=== PATIENT | female | born 1980 | race American Indian/Alaskan Native ===

== ENCOUNTER 2018-02-01 19:05 | Inpatient (IN) | payer OTHER ==
[2018-02-01 20:55] LABS: Basophils # (Auto) 0.1 K/mm3 (0.0-0.1); Basophils % (Auto) 0.8 % (0.0-1.8); Eosinophils # (Auto) 0.2 K/mm3 (0.0-0.4); Eosinophils % (Auto) 2.1 % (0.0-4.3); Hematocrit 38.9 % (30.3-42.9); Hemoglobin 12.6 gm/dl (10.1-14.3); Lymphocytes # (Auto) 3.2 K/mm3 (1.2-5.4); Lymphocytes % (Auto) 30.8 % (13.4-35.0); Mean Corpuscular HGB Conc 32 % (30-34); Mean Corpuscular Hemoglobin 31 pg (28-32); Mean Corpuscular Volume 95 fl (79-97); Monocytes # (Auto) 0.8 K/mm3 (0.0-0.8); Monocytes % (Auto) 7.6 % (0.0-7.3); Platelet Count 327 K/mm3 (140-440); Red Blood Count 4.11 M/mm3 (3.65-5.03); Red Cell Distribution Width 15.4 % (13.2-15.2)
[2018-02-01 21:04] LABS: BUN/Creatinine Ratio 18; Blood Urea Nitrogen 9 mg/dL (7-17); Calcium 8.9 mg/dL (8.4-10.2); Hemolysis Index 30
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
--- NOTE | 2018-02-02 00:16 | Cat Scan Report ---
FINAL REPORT EXAM: CT HEAD/BRAIN WO CON HISTORY: tia COMPARISON: None available. TECHNIQUE: Axial images obtained skull base through vertex. FINDINGS: No acute intracranial hemorrhage, midline shift or pathologic extra axial fluid collection. Ventricles and cisterns are normal in size and configuration for the patient's age. Reynolds-white differentiation preserved. Calvarium grossly intact. Ocular globes are grossly unremarkable. Prominent retention cyst or polyp within the right sphenoid sinus and mild mucosal thickening ethmoid air cells. Mastoid air cells are clear. IMPRESSION: No grossly acute intracranial abnormality.
[2018-02-02 00:44] LABS: INR 0.87 (0.87-1.13); Partial Thromboplastin Time 28.5 Sec. (24.2-36.6)
[2018-02-02] MEDS ORDERED: BABY ASPIRIN PO ONE (01:09)
[2018-02-02] MEDS ORDERED: ZOFRAN IV PRN (03:25)
[2018-02-02] MEDS ORDERED: SODIUM CHLORIDE FLUSH SYRINGE 10 ML IV PRN (03:25)
[2018-02-02] MEDS ORDERED: NACL 0.9% 1000 ML 1,000 ML IV SCH (04:00)
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
[2018-02-02 04:48] LABS: Creatine Kinase MB < 1.0 ng/mL (0.0-4.0)
[2018-02-02 09:23] LABS: Creatine Kinase MB < 1.0 ng/mL (0.0-4.0)
--- NOTE | 2018-02-02 09:45 | Event Note ---
Date: 02/02/18 Patient seen and examined. Admitted for TIA, syncope and hypertension. CT of the brain was unremarkable. Cardiac enzymes were normal. Echo pending. Obtain MRI of the brain and carotid Doppler. Neuro check every 4hr.
--- NOTE | 2018-02-02 11:17 | Progress Note ---
Subjective Date of service: 02/02/18 Interval history: CONSULT DICTATED Objective Vital Signs Temp Pulse Pulse Pulse Pulse Resp Resp 02/02/18 08:42 98.6 F 68 16 02/02/18 06:51 17 02/02/18 05:40 74 14 02/02/18 05:30 67 14 02/02/18 05:20 68 13 02/02/18 05:10 61 12 02/02/18 05:00 84 16 02/02/18 04:50 82 16 02/02/18 04:40 77 15 02/02/18 04:30 71 14 02/02/18 04:20 70 12 02/02/18 04:10 66 12 02/02/18 04:00 63 11 L 02/02/18 03:50 63 18 02/02/18 03:40 74 12 02/02/18 03:36 59 L 73 78 02/02/18 03:30 69 16 02/02/18 03:20 69 17 02/02/18 03:10 70 14 02/02/18 03:00 70 16 02/02/18 02:00 61 14 02/02/18 01:00 64 15 02/02/18 00:30 65 17 02/01/18 22:50 98 F 68 16 02/01/18 20:21 98.3 F 77 16 BP BP BP BP BP Pulse Ox 02/02/18 08:42 142/75 99 02/02/18 06:51 02/02/18 05:40 151/55 98 02/02/18 05:30 151/55 100 02/02/18 05:20 151/55 98 02/02/18 05:10 163/75 98 02/02/18 05:00 163/75 98 02/02/18 04:50 151/55 93 02/02/18 04:40 151/55 97 02/02/18 04:30 151/55 98 02/02/18 04:20 151/55 98 02/02/18 04:10 151/55 98 02/02/18 04:00 151/55 99 02/02/18 03:50 145/72 100 02/02/18 03:40 148/72 99 02/02/18 03:36 137/81 152/86 148/72 02/02/18 03:30 145/72 99 02/02/18 03:20 145/72 99 02/02/18 03:10 145/72 99 02/02/18 03:00 145/72 100 02/02/18 02:00 133/64 100 02/02/18 01:00 139/74 100 02/02/18 00:30 139/74 100 02/01/18 22:50 146/81 99 02/01/18 20:21 149/82 97 - Labs and Meds Cardiac Enzymes 02/02/18 02/02/18 Range/Units 03:45 08:18 CK-MB (CK-2) < 1.0 < 1.0 (0.0-4.0) ng/mL Coagulation 02/01/18 Range/Units 23:46 PT 12.3 (12.2-14.9) Sec. INR 0.87 (0.87-1.13) APTT 28.5 (24.2-36.6) Sec. CBC 02/01/18 Range/Units 20:39 WBC 10.5 (4.5-11.0) K/mm3 RBC 4.11 (3.65-5.03) M/mm3 Hgb 12.6 (10.1-14.3) gm/dl Hct 38.9 (30.3-42.9) % Plt Count 327 (140-440) K/mm3 Lymph # 3.2 (1.2-5.4) K/mm3 [place] # 0.8 (0.0-0.8) K/mm3 Eos # 0.2 (0.0-0.4) K/mm3 Baso # 0.1 (0.0-0.1) K/mm3 Comprehensive Metabolic Panel 02/01/18 Range/Units 20:39 Sodium 137 (137-145) mmol/L Potassium 4.1 (3.6-5.0) mmol/L Chloride 100.7 (98-107) mmol/L Carbon Dioxide 22 (22-30) mmol/L BUN 9 (7-17) mg/dL Creatinine 0.5 L (0.7-1.2) mg/dL Glucose 87 (65-100) mg/dL Calcium 8.9 (8.4-10.2) mg/dL - Imaging and Cardiology EKG: image reviewed
[2018-02-02] MEDS: SODIUM CHLORIDE FLUSH SYRINGE 10 ML IV SCH ×2 (11:32→22:44)
[2018-02-02] MEDS: LOVENOX SUB-Q SCH (11:33)
[2018-02-02] MEDS: TYLENOL PO PRN ×2 (11:45→18:20)
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
[2018-02-03 05:56] LABS: Basophils # (Auto) 0.1 K/mm3 (0.0-0.1); Basophils % (Auto) 0.8 % (0.0-1.8); Eosinophils # (Auto) 0.2 K/mm3 (0.0-0.4); Eosinophils % (Auto) 2.3 % (0.0-4.3); Hematocrit 38.6 % (30.3-42.9); Hemoglobin 12.8 gm/dl (10.1-14.3); Lymphocytes # (Auto) 3.3 K/mm3 (1.2-5.4); Lymphocytes % (Auto) 43.9 % (13.4-35.0); Mean Corpuscular HGB Conc 33 % (30-34); Mean Corpuscular Hemoglobin 31 pg (28-32); Mean Corpuscular Volume 92 fl (79-97); Monocytes # (Auto) 0.4 K/mm3 (0.0-0.8); Platelet Count 313 K/mm3 (140-440); Red Blood Count 4.19 M/mm3 (3.65-5.03); Red Cell Distribution Width 14.7 % (13.2-15.2)
[2018-02-03 06:16] LABS: BUN/Creatinine Ratio 14; Blood Urea Nitrogen 7 mg/dL (7-17); Calcium 8.8 mg/dL (8.4-10.2); Hemolysis Index 15
--- NOTE | 2018-02-03 10:03 | Progress Note ---
Assessment and Plan - TIA, Continue with antiplatelets, anticoagulation. Neuro check CT of the brain was unremarkable. MRI of the brain pending as well as carotid Doppler. - Syncope Normal CT scan of the brain. Carotid Doppler reports pending - Hypertension Optimize with oral antihypertensives - DVT prophylaxis with Lovenox and GI with Pepcid Subjective Date of service: 02/03/18 Principal diagnosis: TIA, syncope, hypertension. Interval history: Patient seen and examined her. Denies any syncope. No headache. No lateralizing weakness. Objective - Exam Narrative Exam: Constitutional: Well-nourished well-developed. In no distress Head: Normocephalic atraumatic Eyes: Pupils are equal round and reactive to light Nose: No enlarged turbinates, no septal deviation. Mouth: Moist mucous membranes. Neck: Supple no thyromegaly. No bruit. No JVD Heart: Regular rate and rhythm, S1-S2 abnormal. No rubs murmurs or gallop Lungs: Clear to auscultation bilaterally no rales or rhonchi Abdomen: Soft, nontender. Bowel sound are present. Extremities: No edema no cyanosis and no clubbing. Neuro: Alert oriented Oriented x3. No focal sensory or motor deficit. Skin: No rashes no hyperemic spots Psychiatry: Euthymic. Calm. - Constitutional Vitals: Vital Signs - 12hr 02/02/18 02/03/18 02/03/18 22:00 00:00 04:43 Temperature 98.2 F 98.5 F Pulse Rate 64 71 Pulse Rate [ 80 Right Radial] Respiratory 18 18 18 Rate Blood Pressure 152/69 146/80 O2 Sat by Pulse 99 95 Oximetry 02/03/18 08:20 Temperature 98.5 F Pulse Rate 63 Pulse Rate [ Right Radial] Respiratory 20 Rate Blood Pressure 157/94 O2 Sat by Pulse 99 Oximetry - Labs CBC & Chem 7: 02/03/18 05:39 02/03/18 05:39 Labs: Abnormal lab results 02/03/18 02/03/18 Range/Units 05:39 05:39 Lymph % (Auto) 43.9 H (13.4-35.0) % Sodium 136 L (137-145) mmol/L Creatinine 0.5 L (0.7-1.2) mg/dL
[2018-02-03] MEDS: SODIUM CHLORIDE FLUSH SYRINGE 10 ML IV SCH ×2 (11:30→23:16)
[2018-02-03] MEDS: LOVENOX SUB-Q SCH (11:31)
--- NOTE | 2018-02-03 12:23 | Progress Note ---
Assessment and Plan Syncope normal LVEF by echo Hypertension Headaches no acute intracranial process by head CT Obesity Subjective Date of service: 02/03/18 Principal diagnosis: TIA, syncope, hypertension. Interval history: Patient denies chest pain and shortness of breath. No events seen on telemetry. Objective Vital Signs Temp Pulse Pulse Resp Resp BP Pulse Ox 02/03/18 08:20 98.5 F 63 20 157/94 99 02/03/18 04:43 98.5 F 71 18 146/80 95 02/03/18 00:00 98.2 F 64 18 152/69 99 02/02/18 22:00 80 18 02/02/18 21:45 98 02/02/18 21:05 17 02/02/18 20:07 98.4 F 75 18 148/77 96 02/02/18 19:20 17 02/02/18 19:09 77 02/02/18 17:38 99 02/02/18 17:01 98.2 F 105 H 18 150/84 100 - Physical Examination General: No Apparent Distress HEENT: Positive: PERRL Cardiac: Positive: Reg Rate and Rhythm Neuro: Positive: Grossly Intact - Labs and Meds CBC 02/03/18 Range/Units 05:39 WBC 7.5 (4.5-11.0) K/mm3 RBC 4.19 (3.65-5.03) M/mm3 Hgb 12.8 (10.1-14.3) gm/dl Hct 38.6 (30.3-42.9) % Plt Count 313 (140-440) K/mm3 Lymph # 3.3 (1.2-5.4) K/mm3 [place] # 0.4 (0.0-0.8) K/mm3 Eos # 0.2 (0.0-0.4) K/mm3 Baso # 0.1 (0.0-0.1) K/mm3 Comprehensive Metabolic Panel 02/03/18 Range/Units 05:39 Sodium 136 L (137-145) mmol/L Potassium 3.8 (3.6-5.0) mmol/L Chloride 100.6 (98-107) mmol/L Carbon Dioxide 22 (22-30) mmol/L BUN 7 (7-17) mg/dL Creatinine 0.5 L (0.7-1.2) mg/dL Glucose 88 (65-100) mg/dL Calcium 8.8 (8.4-10.2) mg/dL
--- NOTE | 2018-02-03 19:52 | Magnetic Resonance Report ---
FINAL REPORT EXAM: MR BRAIN WO CON HISTORY: TIA TECHNIQUE: MRI brain: Axial T1, T2 , FLAIR, diffusion, and gradient echo axial Sagittal T1 Coronal FLAIR PRIORS: None. FINDINGS: The cerebral hemispheres appear normal without focal lesions. The ventricles and sulci appear normal for age. There are no abnormal extra-axial fluid collections. There is no restricted diffusion. There is no evidence of acute intracranial hemorrhage. The brainstem and cerebellum appear normal. There is a large mucous retention cyst in right sphenoid sinus. IMPRESSION: Normal MRI of the brain without contrast. Large mucous retention cyst in the right sphenoid sinus.
[2018-02-04] MEDS ORDERED: NORVASC PO SCH (10:00)
[2018-02-04] MEDS: LOVENOX SUB-Q SCH (10:29)
[2018-02-04] MEDS: SODIUM CHLORIDE FLUSH SYRINGE 10 ML IV SCH (10:30)
--- NOTE | 2018-02-04 12:53 | Discharge Summary ---
Providers - Providers Date of Admission: 02/02/18 03:25 Date of discharge: 02/04/18 Attending physician: HSAHRIAR JONES 02/02/18 03:25 Consult to Physician [CONS] Routine Comment: Consulting Provider: SRI RUSH Physician Instructions: Reason For Exam: syncope Primary care physician: HEEL SPRAYER Hospitalization Condition: Good Pertinent studies: CT head without contrast; no acute abnormality MRI brain; no acute abnormality noted, large mucous retention cyst in the right sphenoid sinus Carotid Doppler; less than 50% stenosis Echocardiogram; within normal limits, ejection fraction 60-65% Exam - Constitutional Vitals: Temp Pulse Resp BP Pulse Ox 98.3 F 63 20 134/74 94 02/04/18 07:59 02/04/18 10:29 02/04/18 07:59 02/04/18 10:29 02/04/18 07:59 Plan Activity: no restrictions Diet: other (cardiac diet) Additional Instructions: Outpatient event monitor placement, at electric motor assembler's office during follow-up visit. Diet modification, exercise as tolerated and weight reduction when medically stable Follow up with: KARAN VELARDE MD [Primary Care Provider] - 3-5 Days SRI RUSH MD [Staff Physician] - 7 Days Prescriptions: amLODIPine [Norvasc] 5 mg PO QDAY #30 tablet Aspirin [Aspirin BABY CHEW TAB] 81 mg PO QDAY #30 tab.chew
--- NOTE | 2018-02-04 13:48 | Progress Note ---
Assessment and Plan - Patient Problems (1) Pre-syncope Current Visit: Yes Status: Acute Plan to address problem: Cardiac workup is negative with serial ECGs, echocardiogram and telemetry monitoring. Recommend follow-up in our office in 1-2 weeks after discharge. Subjective Date of service: 02/04/18 Principal diagnosis: TIA, syncope, hypertension. Interval history: Patient is comfortable, no new cardiac complaints. Objective Vital Signs Temp Pulse Pulse Resp Resp BP BP 02/04/18 10:29 63 134/74 02/04/18 07:59 98.3 F 63 20 134/74 02/04/18 04:37 98.1 F 67 18 148/78 02/03/18 23:58 98.4 F 64 18 148/84 02/03/18 22:00 80 17 18 02/03/18 20:24 78 02/03/18 20:00 98.3 F 91 H 18 135/65 02/03/18 15:36 98.9 F 71 18 137/59 Pulse Ox 02/04/18 10:29 02/04/18 07:59 94 02/04/18 04:37 97 02/03/18 23:58 98 02/03/18 22:00 02/03/18 20:24 02/03/18 20:00 98 02/03/18 15:36 97 - Physical Examination General: Appears Well, No Apparent Distress HEENT: Positive: PERRL Neck: Positive: neck supple Cardiac: Positive: Reg Rate and Rhythm Lungs: Positive: clear to auscultation Neuro: Positive: Grossly Intact Abdomen: Positive: Soft Skin: Positive: Clear Extremities: Absent: edema - Imaging and Cardiology EKG: image reviewed
[2018-02-04 17:24] VITALS: BP 153/74
== END 2018-02-04 08:30 | disposition home or self-care (01) | DRG 69 ==
LOC: ED 19:05 → 4A 02-02 03:25
PROVIDERS: ADMIT Internal Medicine; ATTEND Internal Medicine
DX: G45.9 Transient cerebral ischemic attack, unspecified (principal); Z68.41 Body mass index [BMI] 40.0-44.9, adult; R55 Syncope and collapse; I10 Essential (primary) hypertension; E66.9 Obesity, unspecified; F41.9 Anxiety disorder, unspecified; F17.200 Nicotine dependence, unspecified, uncomplicated; M25.473 Effusion, unspecified ankle; R51 Headache; Z98.51 Tubal ligation status; Z82.49 Family history of ischemic heart disease and other diseases of the circulatory system
CPT/HCPCS: 36415; 70450; 70551; 80048; 82550; 82553; 83735; 84484; 84703; 85025; 85379; 85610; 85730; 93005; 93010; 93306; 93880; A9270-GY; J1650

== ENCOUNTER 2020-10-13 17:42 | Emergency (ER) | payer OTHER ==
[2020-10-13 19:51] VITALS: BP 146/78
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
== END 2020-10-13 21:35 | disposition home or self-care (01) ==
LOC: ED 17:42
DX: S39.012A Strain of muscle, fascia and tendon of lower back, initial encounter (principal); S46.912A Strain of unspecified muscle, fascia and tendon at shoulder and upper arm level, left arm, initial encounter; S46.812A Strain of other muscles, fascia and tendons at shoulder and upper arm level, left arm, initial encounter; I10 Essential (primary) hypertension; Z98.51 Tubal ligation status; Z79.899 Other long term (current) drug therapy; S13.4XXA Sprain of ligaments of cervical spine, initial encounter; V49.49XA Driver injured in collision with other motor vehicles in traffic accident, initial encounter; Y93.89 Activity, other specified; Y92.410 Unspecified street and highway as the place of occurrence of the external cause; Y99.8 Other external cause status
CPT/HCPCS: 72040; 72100